=== PATIENT | male | born 1945 | race Asian ===

== ENCOUNTER 2020-11-27 19:33 | Emergency (ER) | payer MEDICARE, OTHER ==
[~2020-11-27] VITALS: Ht 172.7 cm; Wt 79.4 kg
[2020-11-27] MEDS ORDERED: ACETAMINOPHEN 325 MG TAB PO ONE (20:45)
[2020-11-27 20:50] LABS: BASOPHILS % 0.2 % (0.0-1.0); HEMATOCRIT 41.1 % (38.2-49.6); LYMPHOCYTES # (AUTO) 1.1 (1.0-3.2); LYMPHOCYTES % 5.1 % (18.0-39.1); MEAN CORPUSCULAR HEMOGLOBIN 31.8 pg (28-32); MEAN CORPUSCULAR HGB CONC 34.1 g/dL (31-35); MEAN CORPUSCULAR VOLUME 93.4 fL (81-99); MONOCYTES # (AUTO) 1.9 (0.2-0.8); MONOCYTES % 8.7 % (4.4-11.3); NEUTROPHILS # (AUTO) 18.1 (2.1-6.9); PLATELET COUNT 179 x10e3/uL (140-360); RED CELL DISTRIBUTION WIDTH 12.7 % (11.7-14.4)
[2020-11-27] MEDS ORDERED: ACETAMINOPHEN 325 MG TAB ONE (20:51)
[2020-11-27 20:56] LABS: CLARITY,URINE SL CLOUDY (CLEAR); COLOR,URINE YELLOW (YELLOW); KETONES,URINE TRACE (NEGATIVE); LEUKOCYTE ESTERASE ,URINE NEGATIVE (NEGATIVE); NITRITE,URINE NEGATIVE (NEGATIVE); PROTEIN,URINE DIPSTICK 1+ (NEGATIVE)
[2020-11-27 20:57] LABS: URINE UROBILINOGEN 1 mg/dL (0.2 - 1)
[2020-11-27 21:03] LABS: INR 1.03; PROTHROMBIN TIME 14.1 seconds (11.9-14.5)
[2020-11-27 21:04] LABS: PARTIAL THROMBOPLASTIN TIME 29.1 seconds (23.8-35.5)
[2020-11-27 21:05] LABS: BACTERIA,URINE RARE /HPF; EPITHELIAL CELLS,URINE RARE /LPF; MUCUS,URINE MODERATE (RARE); WBC,URINE (MAN) 0-5 /HPF (0-5)
[2020-11-27 21:13] LABS: ALBUMIN 3.9 g/dL (3.5-5.0); ANION GAP 14.9 mmol/L (8-16); CALCIUM 8.5 mg/dL (8.4-10.2); CREATININE, SERUM 1.17 mg/dL (0.72-1.25); POTASSIUM 3.9 mmol/L (3.5-5.1)
[2020-11-27 21:20] LABS: CREATINE KINASE MB 0.3 ng/mL (0-5.0)
[2020-11-27] MEDS ORDERED: DOXYCYCLINE HY100 MG PO (21:59)
[2020-11-27] MEDS ORDERED: CEFTRIAXONE 1 GM VIAL IM ONE (22:00)
[2020-11-27] MEDS ORDERED: CEFTRIAXONE 1 GM VIAL ONE (22:14)
[2020-11-27] MEDS ORDERED: LIDOCAINE HCL 2% LOCAL 20 ML VIAL ONE (22:15)
[2020-11-27 23:14] VITALS: BP 129/67
== END 2020-11-27 23:21 | disposition home or self-care (01) ==
LOC: ER 20:31
DX: R50.9 Fever, unspecified (principal); R05 Cough; J18.9 Pneumonia, unspecified organism; E11.65 Type 2 diabetes mellitus with hyperglycemia; Z20.822 Contact with and (suspected) exposure to COVID-19
CPT/HCPCS: 36415; 71045; 80053; 81001; 82550; 82553; 83605; 84484; 85025; 85610; 85730; 87040; 99284; J0696; J2001; U0002